=== PATIENT | female | born 1965 | race African-American/Black ===

== ENCOUNTER 2017-03-26 10:54 | Emergency (ER) | payer OTHER ==
[2017-03-26 11:23] VITALS: TEMP 98.2; BMI 64.3
[2017-03-26] MEDS ORDERED: IBUPROFEN 600 MG TABLET (FP) PO ONE ×2 (12:08→12:11)
[2017-03-26] MEDS ORDERED: METHOCARBAMOL 500 MG TABLET PO ONE (12:08)
--- NOTE | 2017-03-26 12:08 | PDOC ---
History of Present Illness - General History Source: Patient, Old Records Exam Limitations: No Limitations - History of Present Illness Initial Comments: 03/26/17 13:05 The patient is a 52 year old female, with a significant past medical history of hypertension, who presents to the emergency department with back pain for the past week but worsening this morning, prompting the patient to come to ED for evaluation. The patient reports that the back pain is primarily located in the right flank region and notes that it is non radiating in nature. The patient reports that the pain is exacerbated with any movement. The patient reports that she has experienced these symptoms once before (last year); the patient reports that she went to [facility] ED for her symptoms at that time and was given a muscle relaxant (the patient does not remember which one), with relief of symptoms within a couple of days. The patient reports that she has not experienced the back pain since last year until approximately one week ago. The patient reports taking Tylenol yesterday, with minimal relief. The patient denies any recent falls. The patient denies any injury or trauma. The patient denies any weakness/numbness/tingling. The patient denies fever, chills, nausea , vomiting, diarrhea or dysuria. Allergies: None reported. Past Surgical History: None reported. Social History: Current everyday smoker (10 cigarettes/day). Denies alcohol or drug use. PCP: Dr. Patel <Crys Simeon - Last Filed: 03/26/17 13:07> <Elizabeth Da Silva - Last Filed: 03/27/17 10:50> - General Stated Complaint: BACK PAIN Time Seen by Provider: 03/26/17 11:28 Past History <Crys Simeon - Last Filed: 03/26/17 13:07> - Past Medical History HTN: Yes - Psycho/Social/Smoking Cessation Hx Suicidal Ideation: No Smoking History: Current every day smoker Have you smoked in the past 12 months: Yes Number of Cigarettes Smoked Daily: 10 Information on smoking cessation initiated: Yes 'Breaking Loose' booklet given: 03/26/17 Hx Alcohol Use: No Drug/Substance Use Hx: No <Elizabeth Da Silva - Last Filed: 03/27/17 10:50> - Past Medical History Allergies/Adverse Reactions: Allergies Allergy/AdvReac Type Severity Reaction Status Date / Time No Known Drug Allergies Allergy Verified 03/26/17 11:15 Home Medications: Ambulatory Orders Amlodipine Besylate 10 mg PO ONCE 03/26/17 Methocarbamol [Robaxin -] 500 mg PO BID PRN #14 tablet 03/26/17 Tramadol HCl [Ultram -] 50 mg PO Q6H PRN #12 tablet MDD 4 tabs 03/26/17 Review of Systems - Review of Systems Able to Perform ROS?: Yes Comments:: 03/26/17 12:55 GENERAL/CONSTITUTIONAL: No fever or chills. No weakness. HEAD, EYES, EARS, NOSE AND THROAT: No change in vision. No ear pain or discharge. No sore throat. CARDIOVASCULAR: No chest pain or shortness of breath. RESPIRATORY: No cough, wheezing, or hemoptysis. GASTROINTESTINAL: No nausea, vomiting, diarrhea or constipation. GENITOURINARY: No dysuria, frequency, or change in urination. MUSCULOSKELETAL: +Back pain. No joint or muscle swelling or pain. No neck pain. SKIN: No rash. NEUROLOGIC: No headache, vertigo, loss of consciousness, or change in strength/ sensation. ENDOCRINE: No increased thirst. No abnormal weight change. HEMATOLOGIC/LYMPHATIC: No anemia, easy bleeding, or history of blood clots. ALLERGIC/IMMUNOLOGIC: No hives or skin allergy. <Crys Simeon - Last Filed: 03/26/17 13:07> *Physical Exam - Vital Signs Last Vital Signs Temp Pulse Resp BP Pulse Ox 98.2 F 72 20 137/79 99 03/26/17 11:06 03/26/17 11:06 03/26/17 11:06 03/26/17 11:06 03/26/17 11:06 - Physical Exam Comments: 03/26/17 12:51 GENERAL: Awake, alert, and fully oriented, in no acute distress. HEAD: No signs of trauma. EYES: PERRLA, EOMI, sclera anicteric, conjunctiva clear. ENT: Auricles normal inspection, hearing grossly normal, nares patent, oropharynx clear without exudates. Moist mucosa. NECK: Normal ROM, supple, no lymphadenopathy, JVD, or masses. LUNGS: Breath sounds equal, clear to auscultation bilaterally. No wheezes, and no crackles. HEART: Regular rate and rhythm, normal S1 and S2, no murmurs, rubs or gallops. ABDOMEN: Soft, nontender, normoactive bowel sounds. No guarding, no rebound. No masses. SPINE: No midline tenderness. Pain elicited by twisting of the torso. EXTREMITIES: Normal range of motion, no edema. No clubbing or cyanosis. No cords , erythema, or tenderness. NEUROLOGICAL: Cranial nerves II through XII intact. Normal speech, normal gait. SKIN: Warm, dry, normal turgor, no rashes or lesions noted. <Crys Simeon - Last Filed: 03/26/17 13:07> - Vital Signs Last Vital Signs Temp Pulse Resp BP Pulse Ox 98.2 F 72 20 137/79 99 03/26/17 11:06 03/26/17 11:06 03/26/17 11:06 03/26/17 11:06 03/26/17 11:06 <Elizabeth Da Silva - Last Filed: 03/27/17 10:50> Medical Decision Making - Medical Decision Making 03/26/17 14:23 Pt reassessed. She is able to stand and bend, pain free. Improved with robaxin and tramadol. Stable for DC home. <Elizabeth Da Silva - Last Filed: 03/27/17 10:50> *DC/Admit/Observation/Transfer - Attestations Scribe Attestion: 03/26/17 12:09 Documentation prepared by Crys Simeon, acting as medical coding specialist for Elizabeth Da Silva MD. <Crys Simeon - Last Filed: 03/26/17 13:07> - Discharge Dispostion Admit: No <Elizabeth Da Silva - Last Filed: 03/27/17 10:50> Diagnosis at time of Disposition: Low back pain Qualifiers: Chronicity: acute Back pain laterality: left Sciatica presence: without sciatica Qualified Code(s): M54.5 - Low back pain - Discharge Dispostion Disposition: HOME Condition at time of disposition: Stable - Prescriptions Prescriptions: Methocarbamol [Robaxin -] 500 mg PO BID PRN #14 tablet PRN Reason: Muscle Spasms Tramadol HCl [Ultram -] 50 mg PO Q6H PRN #12 tablet MDD 4 tabs PRN Reason: Severe Pain - Referrals Referrals: Elba Patel MD [Primary Care Provider] -
[2017-03-26] MEDS ORDERED: METHOCARBAMOL 500 MG TABLET ONE (12:11)
[2017-03-26] MEDS ORDERED: traMADol HCL 50 MG TABLET PO ONE (13:23)
[2017-03-26] MEDS ORDERED: traMADol HCL 50 MG TABLET ONE (13:26)
[2017-03-26 14:48] VITALS: BP 130/70; PULSE 80
== END 2017-03-26 14:48 | disposition home or self-care (01) ==
LOC: JER 10:54
DX: M54.5 Low back pain (principal); I10 Essential (primary) hypertension; F17.210 Nicotine dependence, cigarettes, uncomplicated
CPT/HCPCS: 99281-25